=== PATIENT | female | born 1975 | race Caucasian/White ===

== ENCOUNTER 2019-09-29 18:51 | Emergency (ER) | payer OTHER ==
[2019-09-29 19:05] VITALS: TEMP 97.4
[2019-09-29] MEDS ORDERED: SODIUM CHLORIDE 0.9% 1000ML 1,000 ML IVS PRN (19:10)
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
[2019-09-29] MEDS ORDERED: ONDANSETRON INJ 4 MG/2 ML VIAL IV ONE (20:12)
[2019-09-29] MEDS ORDERED: HYDROmorphone HCL INJ 2 MG/ML VIAL IV ONE (20:13)
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
[2019-09-29 22:13] VITALS: BP 124/76; O2SAT 96
[2019-09-29] MEDS ORDERED: CYCLOBENZAPRINE HCL 10 MG TAB PO ONE (23:05)
== END 2019-09-29 23:17 | disposition home or self-care (01) ==
LOC: ER 18:51
DX: S80.02XA Contusion of left knee, initial encounter (principal); S20.212A Contusion of left front wall of thorax, initial encounter; R07.9 Chest pain, unspecified; M25.562 Pain in left knee; V87.7XXA Person injured in collision between other specified motor vehicles (traffic), initial encounter; Y92.410 Unspecified street and highway as the place of occurrence of the external cause
CPT/HCPCS: 70450; 71260; 72125; 73562; 73700; 74177; 80053; 82150; 82550; 82553; 84484; 85025; 85610; 85730; 93005; J7030